=== PATIENT | male | born 1995 | race Caucasian/White ===

== ENCOUNTER 2022-10-24 18:38 | Emergency (ER) | payer SELFPAY ==
[~2022-10-24] VITALS: Ht 182.9 cm; Wt 120.5 kg
[2022-10-24 18:47] VITALS: TEMP 98.1; O2SAT 95
[2022-10-24 19:22] LABS: BASOPHILS % 0.2 % (0.0-2.0); EOSINOPHILS % 1.6 % (0.0-5.0); HEMATOCRIT. 46.4 % (42.0-52.0); HEMOGLOBIN. 16.2 g/dL (14.0-18.0); LYMPHOCYTES % 29.2 % (20.0-50.0); MEAN CORPUSCULAR HEMOGLOBIN 30.3 pg (28.0-32.0); MEAN CORPUSCULAR VOLUME 86.9 fL (80.0-94.0); MEAN PLATELET VOLUME 8.9 fl (7.4-10.4); PLATELET 272 x1000/uL (130-400); RED BLOOD CELL COUNT 5.34 mill/uL (4.7-6.1); RED CELL DISTRIBUTION WIDTH 12.7 % (11.6-14.6)
[2022-10-24 19:30] LABS: CHLORIDE 104 mEq/L (98-107)
[2022-10-25 00:07] VITALS: BP 159/90; PULSE 95; RESP 20
== END 2022-10-24 20:00 | disposition home or self-care (01) ==
LOC: ER 18:48
DX: R07.89 Other chest pain (principal)
CPT/HCPCS: 36415; 71045; 80053; 84484; 85025; 85379; 93005; 99285